=== PATIENT | male | born 1945 | race African-American/Black ===

== ENCOUNTER 2024-12-09 23:48 | Emergency (ER) | payer MEDICARE, OTHER ==
[~2024-12-09] VITALS: Ht 175.3 cm; Wt 90.0 kg
[~2024-12-09 23:48] MED LIST: AMLODIPINE; ASPI-1406; ATOR20TA65; BUME1TAB8; CLOP75TA15; FERR325T23; FOLI-43; HCTZ; LISI40TA13; METFORMIN; METOPROLOL; PREG50CA; TERA5CAP4; VIC; ZOLP10TA2; [UNRECOGNIZED DRUG - OTHER]
[2024-12-09 23:50] VITALS: TEMP 98.3
[2024-12-10] VITALS (8 sets, daily range): BP systolic 78; BP diastolic 27; PULSE 98–137; RESP 16–26; O2SAT 91–100
[2024-12-10 01:17] LABS: HEMATOCRIT. 23.6 % (42.0-52.0); MEAN CORPUSCULAR HEMOGLOBIN 25.5 pg (28.0-32.0); MEAN CORPUSCULAR HGB CONC 29.7 g/dL (31.0-37.0); MEAN CORPUSCULAR VOLUME 85.8 fL (80.0-94.0); PLATELET 348 x1000/uL (130-400); RED BLOOD CELL COUNT 2.76 mill/uL (4.7-6.1); RED CELL DISTRIBUTION WIDTH 21.5 % (11.6-14.6); WHITE BLOOD COUNT 26.7 x1000/uL (4.5-11.0)
[2024-12-10 01:24] LABS: DIFFERENTIAL COMMENT 1
[2024-12-10 01:31] LABS: CHLORIDE 95 mEq/L (98-107); POTASSIUM 5.7 mEq/L (3.5-5.1); SODIUM 127 mEq/L (136-145)
[2024-12-10 01:32] LABS: CALCIUM 8.5 mg/dL (8.7-10.4); CARBON DIOXIDE 17 mEq/L (21-32)
[2024-12-10 01:37] LABS: CREATININE 2.6 mg/dL (0.6-1.3); GLUCOSE 99 mg/dL (70-105); UREA NITROGEN BLOOD 47 mg/dL (9-23)
[2024-12-10 02:09] LABS: ETHANOL BLOOD < 10 mg/dL (<10)
[2024-12-10 02:10] LABS: TROPONIN I HIGH SENSITIVITY 1395 ng/L (3.0-53)
[2024-12-10 02:21] LABS: NUCLEATED RED BLOOD CELLS 4 /100 WBC; PLATELET ESTIMATE NORMAL
[2024-12-10 04:15] LABS: INR 1.2; PROTHROMBIN TIME 13.5 sec (9.6-11.0)
[2024-12-10] MEDS ORDERED: DEXTROSE 50% WATER 50ML SYRINGE IV ONE (06:49)
[2024-12-10] MEDS: DEXTROSE 50% WATER 50ML SYRINGE IV NR ×2 (06:49→10:30)
[2024-12-10] MEDS ORDERED: HEPARIN BOLUS PRN aPTT 30-44 IV (07:00)
[2024-12-10] MEDS ORDERED: HEPARIN BOLUS PRN aPTT <30 IV (07:00)
[2024-12-10] MEDS: NOREPINEPHRINE 8MG/250ML PMX 250 ML IV PRN (07:10)
[2024-12-10] MEDS ORDERED: FENTANYL CITRATE 1,000 MCG in SODIUM CHLORIDE 0.9% 80 ML IV PRN (07:15)
[2024-12-10] MEDS ORDERED: FENTANYL 2500MCG/250ML PMX 250 ML IV PRN (07:15)
[2024-12-10] MEDS: PROPOFOL 10MG/ML 100ML 100 ML IV SCH (07:41)
[2024-12-10] MEDS: HEPARIN 60 UNITS/KG BOLUS IV NR (08:06)
[2024-12-10] MEDS: HEPARIN 25,000 UNITS PREMIX 250 ML IV SCH (08:26)
[2024-12-10 09:12] LABS: BG BASE EXCESS -14.5 mmol/L (-2.0-3.0); BG CARBOXYHEMOGLOBIN 0.4 % (0.5-1.5); BG DEOXYHEMOGLOBIN 0.3 % (0.0-5.0); BG FRACTION INSPIRED OXYGEN 100; BG HCO3 ACT 13.2 mmol/L (21.0-28.0); BG METHEMOGLOBIN 0.2 % (0.5-1.5); BG OXYGEN SATURATION 99.7 % (94.0-98.0); BG OXYHEMOGLOBIN 99.1 % (94.0-98.0); BG PCO2 37.7 mmHg (35.0-48.0); BG PH 7.161 (7.350-7.450); BG PO2 534.6 mmHg (83.0-108.0); BG SAMPLE SITE LEFT RADIAL; BG TOTAL HEMOGLOBIN 8.9 g/dL (13.5-17.5); BG VENT MODE VENT - AC
[2024-12-10] MEDS ORDERED: SODIUM ZIRCONIUM CYCLOSILICATE 10GM/PACKET PO NR (09:15)
[2024-12-10 09:36] LABS: CHLORIDE 94 mEq/L (98-107); SODIUM 126 mEq/L (136-145)
[2024-12-10 09:37] LABS: CARBON DIOXIDE 12 mEq/L (21-32)
[2024-12-10 09:38] LABS: CALCIUM 8.7 mg/dL (8.7-10.4)
[2024-12-10 09:42] LABS: CREATININE 2.9 mg/dL (0.6-1.3); GLUCOSE 56 mg/dL (70-105)
[2024-12-10 09:43] LABS: UREA NITROGEN BLOOD 52 mg/dL (9-23)
[2024-12-10 09:45] LABS: HEMATOCRIT. 29.8 % (42.0-52.0); HEMOGLOBIN. 8.1 g/dL (14.0-18.0); MEAN CORPUSCULAR HEMOGLOBIN 25.2 pg (28.0-32.0); MEAN CORPUSCULAR HGB CONC 27.3 g/dL (31.0-37.0); MEAN CORPUSCULAR VOLUME 92.5 fL (80.0-94.0); MEAN PLATELET VOLUME 10.1 fl (7.4-10.4); PLATELET 359 x1000/uL (130-400); RED BLOOD CELL COUNT 3.22 mill/uL (4.7-6.1); RED CELL DISTRIBUTION WIDTH 22.2 % (11.6-14.6)
[2024-12-10 09:45] LABS: PHOSPHORUS 7.6 mg/dL (2.5-4.9)
[2024-12-10 09:47] LABS: THYROID STIMULATING HORMONE < 0.10 uIU/mL (0.55-4.78)
[2024-12-10 09:48] LABS: POTASSIUM 7.5 mEq/L (3.5-5.1)
[2024-12-10 09:49] LABS: TROPONIN I HIGH SENSITIVITY 1676 ng/L (3.0-53)
[2024-12-10] MEDS ORDERED: SODIUM CHLORIDE 0.9% 1,000 ML IV SCH (10:00)
[2024-12-10 10:08] LABS: LACTIC ACID 13.8 mmol/L (0.4-2.0)
[2024-12-10] MEDS ORDERED: SODIUM BICARBONATE 8.4% 50MEQ/50ML SYR IV NR (10:15)
[2024-12-10] MEDS ORDERED: CALCIUM CHLORIDE 1GM/10ML SYR IV NR (10:30)
[2024-12-10] MEDS ORDERED: ALBUTEROL (0.083%) 2.5MG/3ML NEB HHN NR (10:30)
[2024-12-10] MEDS ORDERED: DOPAMINE 400MG/250ML PREMIX 250 ML IV PRN (10:30)
[2024-12-10] MEDS: INSULIN REGULAR (HUMULIN R) 1000UNITS/10ML VIAL IV NR (10:30)
[2024-12-10 10:39] LABS: DIFFERENTIAL COMMENT 1
[2024-12-10] MEDS ORDERED: DEXTROSE 50% WATER 50ML SYRINGE IV PRN (10:45)
[2024-12-10] MEDS ORDERED: DIGOXIN 500MCG/2ML AMP IV NR (10:45)
[2024-12-10] MEDS ORDERED: PIPERACILLIN/TAZO 3.375G/50ML 50 ML IV SCH (11:00)
[2024-12-10] MEDS: AMIODARONE HCL 300 MG in DEXT 5% WATER 100 ML IV ONE (11:45)
[2024-12-10] MEDS ORDERED: VANCOMYCIN 1.5GM PMX (XELLIA) 300 ML IV SCH (12:00)
[2024-12-10] MEDS ORDERED: PANTOPRAZOLE SODIUM 40 MG/VIAL IV SCH (12:00)
[2024-12-10] MEDS ORDERED: ACETAMINOPHEN 325MG TABLET PO PRN ×2 (12:15)
[2024-12-10] MEDS ORDERED: DOCUSATE SODIUM 100MG CAPSULE PO PRN (12:15)
[2024-12-10] MEDS ORDERED: ACETAMINOPHEN 650MG/20.3ML UDC GT PRN ×2 (12:15)
[2024-12-10] MEDS ORDERED: ONDANSETRON HCL 4MG/2ML INJ IV PRN (12:15)
[2024-12-10] MEDS ORDERED: CLONIDINE 0.1MG TABLET PO PRN (12:15)
[2024-12-10] MEDS ORDERED: IPRATROPIUM/ALBUTEROL 0.5-3(2.5)MG/3ML NEB HHN PRN (12:15)
[2024-12-10] MEDS ORDERED: BLOOD SUGAR DIAGNOSTIC STRIP TEST SCH (13:00)
[2024-12-10] MEDS ORDERED: INSULIN LISPRO 100 UNITS/ML SUBCUT SCH (13:20)
[2024-12-10] MEDS ORDERED: ENOXAPARIN 100MG/ML SYR SUBCUT SCH (15:00)
[2024-12-10 19:16] LABS: NUCLEATED RED BLOOD CELLS 5 /100 WBC; PLATELET ESTIMATE NORMAL
== END 2024-12-10 11:39 ==
LOC: ER 23:48 → EDBEDREQTM 12-10 02:23 → EDBEDREQ 12-10 02:23 → EDBEDREQSVC 12-10 07:29 → ER 12-10 11:39 → CANBEDREQ 12-10 12:08
DX: I21.A1 Myocardial infarction type 2 (principal); I50.9 Heart failure, unspecified; I13.0 Hypertensive heart and chronic kidney disease with heart failure and stage 1 through stage 4 chronic kidney disease, or unspecified chronic kidney disease; N17.0 Acute kidney failure with tubular necrosis; N18.9 Chronic kidney disease, unspecified; D64.9 Anemia, unspecified; R62.7 Adult failure to thrive; Z46.82 Encounter for fitting and adjustment of non-vascular catheter; R65.21 Severe sepsis with septic shock; Z20.822 Contact with and (suspected) exposure to COVID-19
CPT/HCPCS: 36415 ×2; 71045 ×2; 93005 ×2; 96368; 92950 ×2; 96365; 96375; 99291; 80048; 80320; 82533; 82962; 83880; 83605; 83735; 84100; 84443; 85025; 85610; 85730; 86850; 86900; 86901; 86920; 87040; 84484; 87804 ×2; 82805; 82375; 94660; 94070; 87426; 36600; J0282; J1644 ×2; J1815; J3490; J2704; J7060; J1265; 36430; 96361; A4606; J3370; P9016; G0480